=== PATIENT | male | born 1975 | race Caucasian/White ===

== ENCOUNTER 2017-07-01 10:00 | Emergency (ER) | payer OTHER ==
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
[2017-07-01 10:09] VITALS: BP 122/83; PULSE 71; TEMP 98.7; BMI 25.8
== END 2017-07-01 10:40 | disposition home or self-care (01) ==
LOC: FER 10:00
DX: S86.811A Strain of other muscle(s) and tendon(s) at lower leg level, right leg, initial encounter (principal); X58.XXXA Exposure to other specified factors, initial encounter; Y93.89 Activity, other specified; Y92.9 Unspecified place or not applicable; Y99.0 Civilian activity done for income or pay; J45.909 Unspecified asthma, uncomplicated
CPT/HCPCS: 99283-25

== ENCOUNTER 2017-10-31 13:21 | Emergency (ER) | payer BC ==
[2017-10-31 13:33] VITALS: BP 128/76; PULSE 89; TEMP 98.3; BMI 25.8
--- NOTE | 2017-10-31 13:34 | PDOC ---
History of Present Illness - General Chief Complaint: Injury Stated Complaint: INJURY TO RIGHT FOOT MINOR LACERATION TO GREAT TOE Time Seen by Provider: 10/31/17 13:24 - History of Present Illness Initial Comments: 10/31/17 13:41 Chief complaint: Pain right great toe History of present illness: Injured toe when he slipped down stairs last night. Pain at the MTPJ. Also abrasion of the distal pulp. Ambulating adequately without significant limp Review of systems: Initially felt mild low back pain, which has resolved. No other injuries including injuries to the head neck chest abdomen pelvis or other extremities Past medical history: No significant medical or surgical problems, no medication Social/family history noncontributory Physical exam alert and oriented well-developed well-nourished no acute distress cheerful and cooperative Afebrile, vital signs normal Right great toe: Mild tenderness on palpation of the MTP joint. No erythema, warmth, swelling, or deformity. Superficial abrasion of the distal pulp not involving the nail. No deep punctures or lacerations. No bleeding. Minimal tenderness. Pulses full. No distal sensory or motor deficits. Impression: Superficial abrasion, possible great toe fracture Plan: X-ray, wound care, tetanus is up-to-date. Follow-up orthopedist if pain persists. Past History - Past Medical History Allergies/Adverse Reactions: Allergies Allergy/AdvReac Type Severity Reaction Status Date / Time codeine [Codeine] Allergy Mild Itching Verified 10/31/17 13:24 Home Medications: Ambulatory Orders NK [No Known Home Medication] 10/31/17 Asthma: Yes (seasonal allergy induced) COPD: No - Immunization History Td Vaccination: Yes Immunization Up to Date: Yes - Suicide/Smoking/Psychosocial Hx Smoking Status: No Smoking History: Never smoked Years of Tobacco Use: 0 Have you smoked in the past 12 months: No Number of Cigarettes Smoked Daily: 0 Cigars Per Day: 0 Information on smoking cessation initiated: No Hx Alcohol Use: No Drug/Substance Use Hx: No Substance Use Type: Alcohol *Physical Exam - Vital Signs Last Vital Signs Temp Pulse Resp BP Pulse Ox 98.3 F 89 16 128/76 98 10/31/17 13:23 10/31/17 13:23 10/31/17 13:23 10/31/17 13:23 10/31/17 13:23 Medical Decision Making - Medical Decision Making 10/31/17 14:05 X-ray of the great toe is negative for fracture. Toe jacqueline taped for comfort. Patient adequately ambulatory, with pain reduction. Motrin or Aleve recommended. Wounds scrubbed with saline, dressed with bacitracin. Wound care discussed Rest ice and elevate, follow-up with orthopedist if symptoms persist Adequately ambulatory upon discharge to follow-up as recommended *DC/Admit/Observation/Transfer Diagnosis at time of Disposition: Abrasion Sprain of toe Qualifiers: Encounter type: initial encounter Qualified Code(s): S93.509A - Unspecified sprain of unspecified toe(s), initial encounter - Discharge Dispostion Disposition: HOME Condition at time of disposition: Improved Admit: No - Referrals Referrals: Brian Montoya MD [Staff Physician] - - Patient Instructions Printed Discharge Instructions: DI for Toe Sprain, DI for Abrasion Additional Instructions: Rest, ice, elevate, jacqueline taping for comfort Wound care, clean and dress daily, recheck immediately if sign of infection If pain persists, see orthopedist for further evaluation and treatment 3-5 days. - Post Discharge Activity
== END 2017-10-31 14:22 | disposition home or self-care (01) ==
LOC: FER 13:21
PROC: 2W3UXYZ Immobilization of Right Toe using Other Device (ICD-10-PCS; principal; 2017-10-31)
DX: S90.411A Abrasion, right great toe, initial encounter (principal); S93.509A Unspecified sprain of unspecified toe(s), initial encounter; W10.9XXA Fall (on) (from) unspecified stairs and steps, initial encounter; Y93.89 Activity, other specified; Y92.9 Unspecified place or not applicable
CPT/HCPCS: 73660-TC; 99282-25

== ENCOUNTER 2019-01-10 10:16 | Emergency (ER) | payer BC ==
[2019-01-10 10:27] VITALS: BP 114/82; PULSE 66; TEMP 98; BMI 26.6
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
== END 2019-01-10 11:07 | disposition home or self-care (01) ==
LOC: FER 10:16
DX: S90.111A Contusion of right great toe without damage to nail, initial encounter (principal); W20.8XXA Other cause of strike by thrown, projected or falling object, initial encounter; Y93.89 Activity, other specified; Y92.89 Other specified places as the place of occurrence of the external cause; Y99.0 Civilian activity done for income or pay; J30.2 Other seasonal allergic rhinitis
CPT/HCPCS: 99281-25

== ENCOUNTER 2019-06-09 10:42 | Emergency (ER) | payer BC ==
--- NOTE | 2019-06-09 10:44 | PDOC ---
History of Present Illness - General Chief Complaint: Back Pain Stated Complaint: BACK PAIN Time Seen by Provider: 06/09/19 10:44 History Source: Patient Exam Limitations: No Limitations - History of Present Illness Initial Comments: 43 yo M history asthma presents with L low back pain since yesterday. He states that he bent over to pick something up and felt an immediate spasm in his back. He states he has had similar symptoms in the past, usually relieved by acupuncture. He saw a new weir fisherman yesterday, who did both acupuncture and cupping, but he has not felt relief. He also took two naproxen last night without relief. He is having difficulty walking and bending due to severe pain. No weakness, numbness. No direct trauma. Past History - Past Medical History Allergies/Adverse Reactions: Allergies Allergy/AdvReac Type Severity Reaction Status Date / Time codeine [Codeine] Allergy Mild Itching Verified 06/09/19 10:51 Home Medications: Ambulatory Orders Ibuprofen [Motrin -] 600 mg PO TID PRN #21 tablet 06/09/19 Lidocaine 5% Patch [Lidoderm Patch -] 1 patch TP DAILY PRN #7 patch 06/09/19 Methocarbamol [Robaxin -] 1 - 2 tab PO TID PRN #40 tablet 06/09/19 Naproxen Sodium [Aleve] 440 mg PO ONCE 06/09/19 Asthma: Yes (seasonal allergy induced) COPD: No - Immunization History Td Vaccination: Yes Immunization Up to Date: Yes - Suicide/Smoking/Psychosocial Hx Smoking Status: No Smoking History: Never smoked Years of Tobacco Use: 0 Have you smoked in the past 12 months: No Number of Cigarettes Smoked Daily: 0 Cigars Per Day: 0 Hx Alcohol Use: Yes (SOCIAL) Drug/Substance Use Hx: No Substance Use Type: Alcohol Review of Systems - Review of Systems Able to Perform ROS?: Yes Comments:: GENERAL/CONSTITUTIONAL: No fever or chills. No weakness. HEAD, EYES, EARS, NOSE AND THROAT: No change in vision. No ear pain or discharge. No sore throat. CARDIOVASCULAR: No chest pain or shortness of breath. RESPIRATORY: No cough, wheezing, or hemoptysis. GASTROINTESTINAL: No nausea, vomiting, diarrhea or constipation. GENITOURINARY: No dysuria, frequency, or change in urination. MUSCULOSKELETAL: No joint or muscle swelling or pain. No neck pain. +Low back pain. SKIN: No rash. NEUROLOGIC: No headache, vertigo, loss of consciousness, or change in strength/ sensation. ENDOCRINE: No increased thirst. No abnormal weight change. HEMATOLOGIC/LYMPHATIC: No anemia, easy bleeding, or history of blood clots. ALLERGIC/IMMUNOLOGIC: No hives or skin allergy. *Physical Exam - Physical Exam Comments: GENERAL: Awake, alert, and fully oriented, in no acute distress HEAD: No signs of trauma NECK: Normal ROM, supple, no lymphadenopathy, JVD, or masses EXTREMITIES: Normal range of motion, no edema. No clubbing or cyanosis. No cords, erythema, or tenderness NEUROLOGICAL: Cranial nerves II through XII grossly intact. Normal speech, normal gait. Motor and sensation intact SKIN: Warm, dry, normal turgor, no rashes or lesions noted. SPINE: No midline tenderness. +Soft tissue tenderness to L lumbar paraspinal soft tissue. No CVAT. Medical Decision Making - Medical Decision Making 06/09/19 11:04 Symptoms c/w muscle spasm. Will give muscle relaxer, motrin, and lidoderm patch. 06/09/19 12:17 Pt reassessed, now having some relief. He was previously lying prone on the stretcher and unable to move, but now able to stand and walk. Will DC with robaxin, motrin, lido patches. 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 Given that he is more comfortable now, will DC home. *DC/Admit/Observation/Transfer Diagnosis at time of Disposition: Muscle strain - Discharge Dispostion Disposition: HOME Condition at time of disposition: Stable Decision to Admit order: No - Prescriptions Prescriptions: Ibuprofen [Motrin -] 600 mg PO TID PRN #21 tablet PRN Reason: Pain Lidocaine 5% Patch [Lidoderm Patch -] 1 patch TP DAILY PRN #7 patch PRN Reason: Muscle Spasms Methocarbamol [Robaxin -] 1 - 2 tab PO TID PRN #40 tablet PRN Reason: Muscle Spasms - Referrals Referrals: Angelo Garg MD [Primary Care Provider] - - Patient Instructions Printed Discharge Instructions: DI for Back Spasm Additional Instructions: Warm compresses or a heating pad may help to ease the pain. Apply for 20 minutes maximum, then remove. You can do this a few times per day. Do not sleep with a heating pad, as you can cause serious [place]. - Post Discharge Activity
[2019-06-09] MEDS ORDERED: METHOCARBAMOL 500 MG TABLET PO ONE (10:58)
[2019-06-09] MEDS ORDERED: IBUPROFEN 600 MG TABLET (FP) PO ONE ×2 (10:58→11:03)
[2019-06-09] MEDS ORDERED: LIDOCAINE 5% TOPICAL PATCH TP ONE (10:58)
[2019-06-09] MEDS ORDERED: METHOCARBAMOL 500 MG TABLET ONE (11:03)
[2019-06-09] MEDS ORDERED: LIDOCAINE 5% TOPICAL PATCH ONE (11:03)
[2019-06-09 11:05] VITALS: BP 124/76; PULSE 72; TEMP 97.8; BMI 25.8
[2019-06-09] MEDS ORDERED: LIDOCAINE PATCH REMOVAL MC SCH (22:00)
== END 2019-06-09 12:28 | disposition home or self-care (01) ==
LOC: FER 10:42
DX: S39.012A Strain of muscle, fascia and tendon of lower back, initial encounter (principal); X58.XXXA Exposure to other specified factors, initial encounter; Y93.89 Activity, other specified; Y92.89 Other specified places as the place of occurrence of the external cause; J30.2 Other seasonal allergic rhinitis
CPT/HCPCS: 99282-25

== ENCOUNTER 2021-06-19 10:20 | Emergency (ER) | payer BC ==
[2021-06-19 10:26] VITALS: BP 119/73; PULSE 84; TEMP 98.1; BMI 23.6
[2021-06-19] MEDS ORDERED: IBUPROFEN 400 MG TABLET (FP) PO ONE ×2 (10:30→10:35)
== END 2021-06-19 13:24 | disposition home or self-care (01) ==
LOC: FER 10:20
DX: S01.81XA Laceration without foreign body of other part of head, initial encounter (principal); S39.94XA Unspecified injury of external genitals, initial encounter; V18.0XXA Pedal cycle driver injured in noncollision transport accident in nontraffic accident, initial encounter; Y93.55 Activity, bike riding
CPT/HCPCS: 74177-TC; 99285-25

== ENCOUNTER 2021-09-15 11:37 | Emergency (ER) | payer BC ==
[2021-09-15 11:42] VITALS: BP 134/76; PULSE 73; TEMP 98.6; BMI 24.3
== END 2021-09-15 12:32 | disposition home or self-care (01) ==
LOC: FER 11:37
DX: H92.03 Otalgia, bilateral (principal)
CPT/HCPCS: 99283-25